=== PATIENT | female | born 2000 | race African-American/Black ===

== ENCOUNTER 2018-09-19 20:37 | Emergency (ER) | payer OTHER ==
[~2018-09-19] VITALS: Ht 167.6 cm; Wt 56.8 kg
[2018-09-19 20:45] VITALS: BP 115/46
[2018-09-19] MEDS ORDERED: LORA10TA7 PO (21:04)
[2018-09-19] MEDS ORDERED: BENZ-51 PO (21:04)
== END 2018-09-19 21:53 | disposition home or self-care (01) ==
LOC: EMS 20:39
DX: J06.9 Acute upper respiratory infection, unspecified (principal); H66.92 Otitis media, unspecified, left ear
CPT/HCPCS: 87430